=== PATIENT | male | born 1960 | race Caucasian/White ===

== ENCOUNTER → 2019-02-24 | Outpatient (CLI) | payer BC ==
[2019-02-24 08:16] LABS: Basophils % (A) 1 %; Eosinophils # (A) 0.2 k/uL (0-0.7); Eosinophils % (A) 3 %; HCT 42.7 % (39.0-53.0); HGB 14.8 gm/dL (13.0-17.5); Lymphocytes # (A) 2.2 k/uL (1.0-4.8); Lymphocytes % (A) 38 %; MCHC 34.5 g/dL (31.0-37.0); MCV 95.7 fL (80.0-100.0); Mean Platelet Volume 8.2; Monocytes # (A) 0.3 k/uL (0-1.0); Monocytes % (A) 5 %; Neutrophils # (A) 3.1 k/uL (1.3-7.7); Neutrophils % (A) 52 %; Platelet Count 196 k/uL (150-450); RBC 4.46 m/uL (4.30-5.90); RDW 12.4 % (11.5-15.5); WBC 5.9 k/uL (3.8-10.6)
[2019-02-24 12:00] LABS: African American GFR (CKD) 94.4 (60.0-200.0); Albumin 4.7 g/dL (3.80-4.90); Albumin/Globulin Ratio 2.47 (1.60-3.17); Calcium 9.5 mg/dL (8.7-10.3); Chol/HDL Ratio 3.35; Globulin 1.9 g/dL (1.6-3.3); LDL Cholesterol,Calculated 82.4 mg/dL (0.0-131.0); Non-African American GFR(CKD) 81.4 (60.0-200.0); Potassium 4.3 mmol/L (3.5-5.5); Total Bilirubin 0.5 mg/dL (0.3-1.2); Total Protein 6.6 g/dL (6.2-8.2); VLDL Calculation 30.6 mg/dL (5.00-40.00)
[2019-02-24 16:07] LABS: Hemoglobin A1C 5.8 % (4.0-6.0)
== END | disposition home or self-care (01) ==
LOC: LABWHC1 07:44
PROVIDERS: ATTEND Family Medicine
DX: Z00.00 Encounter for general adult medical examination without abnormal findings (principal)
CPT/HCPCS: 36415; 80053; 80061; 83036; 84153; 84443; 85025

== ENCOUNTER 2022-01-28 11:52 | Emergency (ER) | payer BC, OTHER ==
[2022-01-28 12:10] VITALS: TEMP 98
[2022-01-28] MEDS ORDERED: HYDROmorphone 1 MG/ML 1 ML SYRINGE IVP STA (12:33)
[2022-01-28] MEDS ORDERED: ONDANSETRON 4 MG/2 ML VIAL IVP STA (12:33)
--- NOTE | 2022-01-28 12:53 | ED ---
Lower Extremity Injury HPI <Chandler Mccabe - Last Filed: 01/28/22 14:23> - General Source: patient, RN notes reviewed Mode of arrival: wheelchair Limitations: no limitations <Joss Dawson - Last Filed: 01/28/22 14:35> - General Chief Complaint: Extremity Injury, Lower Stated Complaint: lt ankle injury Time Seen by Provider: 01/28/22 12:21 - History of Present Illness Initial Comments: 61-year-old male presents emergency Department chief complaint left ankle injury. Patient states he was wrenching states that he rolled his ankle states is deformity states that he splinted it was somewhat intake. Patient states that he was falling off to the side. No prior injury or surgeries. Patient has normal drug ALLERGIES no pain in his proximal leg or in his distal foot. No paresthesias (Joss Dawson) - Related Data Home Medications Medication Instructions Recorded Confirmed Fluticasone Nasal [place] [Flonase 2 spray EA NOSTRIL DAILY 01/28/22 01/28/22 Nasal Tyner] Pravastatin Sodium [Pravachol] 80 mg PO DAILY 01/28/22 01/28/22 lisinopriL [Prinivil] 20 mg PO DAILY 01/28/22 01/28/22 Allergies Allergy/AdvReac Type Severity Reaction Status Date / Time No Known Allergies Allergy Verified 01/28/22 14:08 Review of Systems ROS Other: All systems not noted in ROS Statement are negative. <Chandler Mccabe - Last Filed: 01/28/22 14:23> ROS Other: All systems not noted in ROS Statement are negative. <Joss Dawson - Last Filed: 01/28/22 14:35> ROS Statement: Those systems with pertinent positive or pertinent negative responses have been documented in the HPI. Past Medical History Past Medical History: No Reported History History of Any Multi-Drug Resistant Organisms: None Reported Past Surgical History: No Surgical Hx Reported Past Psychological History: No Psychological Hx Reported Smoking Status: Never smoker Past Alcohol Use History: Occasional Past Drug Use History: None Reported <Joss Dawson - Last Filed: 01/28/22 14:35> General Exam Limitations: no limitations General appearance: alert, in no apparent distress Head exam: Present: atraumatic, normocephalic, normal inspection Eye exam: Present: normal appearance, PERRL, EOMI. Absent: scleral icterus, conjunctival injection, periorbital swelling ENT exam: Present: normal exam, normal oropharynx, mucous membranes moist Neck exam: Present: normal inspection, full ROM. Absent: tenderness, meningismus, lymphadenopathy Respiratory exam: Present: normal lung sounds bilaterally. Absent: respiratory distress, wheezes, rales, rhonchi, stridor Cardiovascular Exam: Present: regular rate, normal rhythm, normal heart sounds. Absent: systolic murmur, diastolic murmur, rubs, gallop, clicks Extremities exam: Present: other (Obvious deformity left ankle, tenderness palpation, neurovascular intact no proximal tib-fib tenderness) <Joss Dawson M - Last Filed: 01/28/22 14:35> Course Vital Signs 01/28/22 01/28/22 01/28/22 12:07 13:30 14:00 Temperature 98 F Pulse Rate 80 84 85 Respiratory 16 18 18 Rate Blood Pressure 153/90 158/93 143/89 O2 Sat by Pulse 99 96 97 Oximetry 01/28/22 01/28/22 14:02 14:12 Temperature Pulse Rate 89 99 Respiratory 18 18 Rate Blood Pressure 158/93 141/73 O2 Sat by Pulse 98 97 Oximetry Procedures - Procedural Sedation *Procedural Sedation Start Time: 02:06 *Procedural Sedation Stop Time: 02:26 *Indications: fracture/dislocation reduction *Previous Adverse Reaction to Anesthesia/Sedation?: No *ASA Class: II *Mallampati Airway Score: 3 *Time of Last PO Intake: 14:24 Preparation: teletypesetter monitor applied, pulse oximeter, capnometry used, supplemental O2 applied, suction/airway equipment at bedside, IV secured IV Propofol Dose (mgs): 150 Complications: none Patient Tolerated Procedure: well <Chandler Mccabe - Last Filed: 01/28/22 14:23> - Orthopedic Fracture Reduction Fracture #1 Consent Obtained: written consent Side: left (Left ankle fracture/dislocation reduction) Fracture Reduction Location: other (ankle) Analgesia: procedural sedation Post Reduction X-rays Demonstrate: anatomical reduction Post-Reduction Neuro Exam: intact Post-Reduction Vascular Exam: intact Splint Applied: Yes Patient Tolerated Procedure: well, no complications - Orthopedic Splinting/Casting Injury #1 Side: left Lower Extremity Injury Location: short leg, ankle Lower Extremity Immobilizer: posterior splint, synthetic pre-padded splint Other Orthopedic Equipment: crutches <Joss Dawson - Last Filed: 01/28/22 14:35> - Orthopedic Fracture Reduction Fracture #1 Additional Comments: Procedure performed by me (Joss Dawson) Medical Decision Making <Chandler Mccabe - Last Filed: 01/28/22 14:23> <Joss Dawson - Last Filed: 01/28/22 14:35> - Medical Decision Making FEDE attestation: I, Dr. Chandler Mccabe, personally saw and examined the patient. I have reviewed and agree with the resident/PA findings, including all diagnostic interpretations and treatment plans as written unless otherwise stated. I was present for the golden portions of any procedures performed and inclusive time noted for any critical care statement. (Chandler Mccabe) 61-year-old male presented for left ankle injury. Patient had a left distal fibular fracture with dislocation. This was reduced under conscious sedation with Dr. Mccabe. Patient was splinted was given crutches, pain control. Patient was neurovascular intact he is advised to remain nonweightbearing, elevate, ice and follow-up with orthopedics as directed. (Joss Dawson) Disposition <Chandler Mccabe - Last Filed: 01/28/22 14:23> Is patient prescribed a controlled substance at d/c from ED?: Yes When asked, does pt state using other controlled substances?: No If prescribed controlled substance>3 days was MAPS reviewed?: Prescribed <3 Days If opioid is for acute pain is fill amount 7 days or less?: Yes If Rx opioid, was Start Talking consent form obtained?: Yes Time of Disposition: 14:20 <Joss Dawson - Last Filed: 01/28/22 14:35> Clinical Impression: Dislocation of left ankle joint, Fracture of distal end of left fibula Disposition: HOME SELF-CARE Instructions (If sedation given, give patient instructions): Moderate Sedation (ED), Ankle Dislocation (ED), Ankle Fracture (ED) Additional Instructions: Please return to the Emergency Department if symptoms worsen or any other concerns. Referrals: [facility] [NON-STAFF] - (Supplier of crutches) Juno Gaytan MD [Primary Care Provider] - 1-2 days Lázaro Mena MD [STAFF PHYSICIAN] - 1-2 days
[2022-01-28] MEDS ORDERED: PROPOFOL 10 MG/ML 20 ML VIAL IV STA (13:02)
[2022-01-28] MEDS ORDERED: SODIUM CHLORIDE 0.9% 500 ML 500 ML IV STA (13:02)
--- NOTE | 2022-01-28 13:12 | XR ---
EXAMINATION TYPE: XR ankle limited LT DATE OF EXAM: 01/28/2022 COMPARISON: NONE HISTORY: Deformity TECHNIQUE: Frontal and lateral views of the left ankle are submitted for evaluation. FINDINGS: Ankle dislocation with the distal tibia extending anterior and medial to the talus. Acute t ransverse displaced fracture of the distal fibula diaphysis with approximately 2.8 cm of shortening a nd lateral displacement of the distal fibular fragment. Possible posterior malleolar fracture. [place] ing fragments from the fibular fracture limits evaluation. There is surrounding soft tissue edema. Mo derate size plantar calcaneal spur. IMPRESSION: 1. Moderate ankle dislocation with the distal tibia extending anterior and medial to the talus. 2. Acute displaced fracture of the distal fibula with shortening. 3. Possible posterior malleolus fracture.
[2022-01-28 13:31] VITALS: RESP 18
[2022-01-28] MEDS ORDERED: PROPOFOL 10 MG/ML 20 ML VIAL IV ONE (14:06)
--- NOTE | 2022-01-28 14:32 | XR ---
EXAMINATION TYPE: XR ankle limited LT DATE OF EXAM: 01/28/2022 COMPARISON: Left ankle radiograph the same date. HISTORY: Post reduction TECHNIQUE: Frontal and lateral views of the left ankle are submitted for evaluation. FINDINGS: Overlying cast material limits evaluation of the fine osseous detail. Interval reduction of ankle dislocation with medial clear space widening of approximately 8 mm remaining indicating ligame ntous injury. Improved alignment of distal fibular oblique diaphyseal fracture. Moderate size plantar calcaneal enthesophyte. Diffuse surrounding soft tissue edema. IMPRESSION: Interval reduction of ankle dislocation with improved alignment of distal fibular fracture.
[2022-01-28 15:10] VITALS: BP 147/87; PULSE 70
== END 2022-01-28 15:10 | disposition home or self-care (01) ==
LOC: EC 11:52
DX: S93.05XA Dislocation of left ankle joint, initial encounter (principal); S82.402A Unspecified fracture of shaft of left fibula, initial encounter for closed fracture; X50.0XXA Overexertion from strenuous movement or load, initial encounter
CPT/HCPCS: 73600; 99283; 96374; 96375; 96361; 99152; 27840; J2405; J1170; J2704

== ENCOUNTER → 2022-02-04 | Outpatient (CLI) | payer OTHER ==
--- NOTE | 2022-02-04 09:06 | CT ---
EXAMINATION TYPE: CT ankle LT wo con CT DLP: 266.6 mGycm, Automated exposure control for dose reduction was used. DATE OF EXAM: 02/04/2022 8:55 AM COMPARISON: Left ankle radiographs 01/28/2022. CLINICAL INDICATION:Male, 61 years old with history of M25.572 pain L ankle; PHH, left ankle fx TECHNIQUE: Axial images were obtained of the ankle without the use of IV contrast. Additional nieves l and sagittal reformatted images and soft tissue and bone window were obtained for review. 3-D recon struction was created on a separate workstation. FINDINGS: Redemonstration of oblique fracture of the distal metadiaphyseal fibula with posterior late ral displacement of the distal fibular fragment measuring 5 mm. There is an acute appearing small fra cture involving the tip of the medial malleolus with fracture fragment displaced inferiorly approxima tely 3 mm (series 6, image 47). Medial subluxation of the distal tibia in relation to the talus of ap proximately 1.2 cm. Small ankle joint effusion. Moderate size plantar calcaneal enthesophyte. Diffuse subcutaneous edema. IMPRESSION: Redemonstration of mildly displaced distal fibular fracture with medial subluxation of the distal tib ia in relation to the talus. Additional tiny fracture of the tip of the medial malleolus.
== END | disposition home or self-care (01) ==
LOC: RADCTMAIN 08:32
PROVIDERS: ATTEND Podiatrist
DX: S82.852A Displaced trimalleolar fracture of left lower leg, initial encounter for closed fracture (principal); S82.832A Other fracture of upper and lower end of left fibula, initial encounter for closed fracture

== ENCOUNTER 2022-02-07 10:30 | Day surgery (SDC) | payer OTHER ==
[2022-02-05 12:13] VITALS: BMI 32.1
[~2022-02-07 10:30] MED LIST: DEXAMETHASONE SOD PHOSPHATE 4 MG/ML 1 ML VIAL IV ONE; HYDROmorphone 0.5 MG/0.5 ML SYRINGE IVP PRN; LACTATED RINGERS 1,000 ML IV SCH; MIDAZOLAM 2 MG/2 ML VIAL IV PRN; ONDANSETRON 4 MG/2 ML VIAL IVP ONE; SCOPOLAMINE 1 MG/72 HR PATCH TRANSDERM ONE
[2022-02-07 10:53] VITALS: RESP 16
[2022-02-07] MEDS ORDERED: PROPOFOL 10 MG/ML 20 ML VIAL IV ONE (12:27)
[2022-02-07] MEDS ORDERED: MIDAZOLAM 2 MG/2 ML VIAL ONE (12:27)
[2022-02-07] MEDS ORDERED: LIDOCAINE 2% INJ 20 MG/ML (2 ML VIAL) ONE (12:27)
[2022-02-07] MEDS ORDERED: PHENYLEPHRINE-0.9% NACL SYG 1,000 MCG/10 ML SYRINGE ONE (12:27)
[2022-02-07] MEDS ORDERED: DEXAMETHASONE SOD PHOSPHATE 4 MG/ML 1 ML VIAL ONE (12:27)
[2022-02-07] MEDS ORDERED: ROPIVACAINE 5 MG/ML 30 ML VIAL ONE (12:27)
[2022-02-07] MEDS ORDERED: fentaNYL (PF) 50 MCG/ML 2 ML AMP ONE (12:27)
[2022-02-07] MEDS ORDERED: SODIUM CHLORIDE 0.9% (PF) 10 ML VIAL ONE (12:27)
--- NOTE | 2022-02-07 12:42 | P.ANPRN ---
Procedure Note - Anesthesia - Nerve Block Performed Left Popliteal Single Time Out Performed: Yes (1125) Date of Procedure: 02/07/22 Location of Patient: PreOp Indication: Acute Post-Operative Pain, Dx/Pain Location (Left foot pain), Requested by Surgeon Specifically requested for management of pain by DrAleksey: Derrek Mcgarry Sedation Type: Sedate with meaningful contact maintained Preparation: Sterile Prep Position: Right Lateral Catheter: None Needle Types: Pajunk Needle Gauge: 18 Ultrasound used to visualize needle placement: Yes Ultrasound used to observe medication spread: Yes Injectate: 0.5% Ropivacaine (see comment for volume) (20 cc + 2mg of decadron + 10cc of saline) Blood Aspirated: No Pain Paresthesia on Injection Noted: No Resistance on Injection: Normal Image Stored and Saved: Yes Events: Uneventful and Well Tolerated Left Adductor Canal Single Time Out Performed: Yes Date of Procedure: 02/07/22 Location of Patient: PreOp Indication: Acute Post-Operative Pain, Dx/Pain Location (Left ankle) Specifically requested for management of pain by Dr.: Derrek Mcgarry Sedation Type: Sedate with meaningful contact maintained Preparation: Sterile Prep Position: Supine Catheter: None Needle Types: Pajunk Needle Gauge: 18 Ultrasound used to visualize needle placement: Yes Ultrasound used to observe medication spread: Yes Injectate: 0.5% Ropivacaine (see comment for volume) (10 cc + 2mg of decadron + 10cc of saline) Blood Aspirated: No Pain Paresthesia on Injection Noted: No Resistance on Injection: Normal Image Stored and Saved: Yes Events: Uneventful and Well Tolerated
[2022-02-07] MEDS ORDERED: LACTATED RINGERS 1,000 ML IV ONE (13:17)
--- NOTE | 2022-02-07 13:55 | XR ---
Intraoperative/procedural fluoroscopic services were provided for left ankle ORIF. There is left dist al fibular fixation plate with transverse screws and right medial malleolus fixation hardware. Hardwa re appears intact with appropriate alignment. Total fluoroscopy time is 15 seconds with a total of 3 submitted images to PACS. Please see the operative note for further details.
[2022-02-07 14:16] VITALS: TEMP 98.3
[2022-02-07] MEDS: Acetaminophen-Codeine 300-30mg TAB ONE ×2 (15:12→15:14)
[2022-02-07 15:25] VITALS: BP 135/86; PULSE 85
--- NOTE | 2022-02-07 16:47 | P.OP ---
Date of Procedure: 02/07/22 Preoperative Diagnosis: 1. Displaced lateral malleolar fracture left ankle 2. Ruptured syndesmosis left ankle 3. Ruptured deltoid ligament left ankle Postoperative Diagnosis: 1. Same 2. Same 3. Same Procedure(s) Performed: 1. Open reduction with internal fixation left lateral malleolar fracture 2. Open reduction with internal fixation syndesmotic rupture left ankle 3. Open repair deltoid ligament left ankle Implants: Arthrex precontoured lateral malleolar plate Arthrex tight rope Arthrex fiber Chaparro anchors 2 Anesthesia: LUCILA Surgeon: Derrek Mcgarry Estimated Blood Loss (ml): 5 Pathology: none sent Condition: stable Disposition: PACU Description of Procedure: Prior to the patient being brought to the operating room, anesthesia administered a nerve block on the left lower extremity. Then the patient was brought into the operative room and placed on table supine position. Timeout was taken to confirm correct laterality of surgery, correct procedure, and correct patient identifiers. Once all staff in the room were in agreement with the timeout, the patient was induced and placed under general anesthesia. A well-padded tourniquet was placed on the left thigh and a wedge underneath the left hip to internally rotate the left leg. The left leg was then prepped and draped in usual manner. The leg was exsanguinated and the tourniquet inflated to 250 mmHg. Attention was first directed over the medial malleolus where an incision was made along the anterior and distal aspects. It was deepened down to the saphenous tissue careful to identify, avoid, and retract any neurovascular structures and cauterize any bleeding vessels. The saphenous vein was identified and protected. The anterior medial joint capsule was opened revealing that there was a complete rupture of the deltoid ligament with incarceration of the tissue in the medial gutter. A Vargas was first used to remove bone of the anterior distal surface of the medial malleolus to help facilitate the ligament re-adhesion upon repair. Then the wound is thoroughly irrigated with a bike saline. The ligament was taken from the medial gutter then the ankle was inverted to reduce the mortise and delivered the tissue into the surgical field. Drill holes for the fiber Benigno anchors were made one and the anterior surface of the medial malleolus one of the distal aspect. With the deltoid ligament tissue still mobilized the suture from the fiber Benigno anchors was used to capture the ligament and then with the ankle inverted the suture was tied to the medial malleolus completed the deltoid ligament repair. Then attention was directed to the lateral ankle where a linear incision was made over the lateral malleolus. It was deepened down to the saphenous tissue careful to identify, avoid, and retract any neurovascular structures and cauterize any bleeding vessels. Dissection was continued down to the lateral malleolus following the hematoma the fracture. Soft tissues reflected to expose lateral malleolus and the fracture. The fracture fragments were distracted and any interposing hematoma, soft tissue, or bony fragments were removed and then the area thoroughly irrigated. Bone reduction forceps were used to rotate and reduce the fracture and bring the fibula back out to length. Fluoroscopy was used to check overall alignment which showed it was near anatomic upon reduction. An interfragmentary compression screw was then placed from anterior to posterior across the fracture line. The clamps the removed and then a precontoured lateral malleolar plate was then positioned and adjusted under fluoroscopy until was properly placed. Temporary fixation was then done to hold it in place. In the proximal holes in the plate, 3.5 locking screws were placed. In the distal aspect of the plate 3.0 locking and nonlocking screws were placed. Drill holes were made through the plate under direct fluoroscopic visualization so that the lateral gutter was not penetrated. 2 locking and 2 nonlocking screws were position. Fluoroscopic imaging showed anatomic reduction of the fracture with proper placement of all hardware. Then under live fluoroscopy the ankle was stressed that showed gapping of the syndesmosis. So the decision to place a tight rope was then made. Drilling directly to the hole the plate corresponding the most tight rope it was drilled from lateral to medial with slight anterior angulation so that it exited out the medial aspect of the tibia. The tight rope wire weaver was then placed until the button was cleared of the medial cortex the tibia at which point the button was deployed and the manipulated so wide flat against the bone surface. The wire weaver was then removed and then a large bone reduction forceps was used to deep the syndesmosis reduced while holding the ankle maximally dorsiflexed. Then the button was then tied until it engaged the plate and lateral malleolus. The clamp was removed and then the ankle was tested under fluoroscopy for any abnormal gapping medially or at the syndesmosis and number found. The suture was then cut and the wound thoroughly irrigated with antibiotic saline. Deep closure was done with 2-0 Vicryl. Subcu closure was done with 3-0 Monocryl. And skin closure done with yosef. Then attention directed back to the medial malleolar incision which was again irrigated with antibiotic saline. Subcu closure done for Monocryl skin closure done with yosef. An Arthrex Gemzar dressings were placed over both incisions and a bulky dry dressings applied to the left ankle. The tourniquet was released and capillary refill return to all digits on the left foot. The patient was then placed in a well-padded, well molded plaster posterior mold/sugar tong splint. Ankle was held in neutral position until it was dried. Then anesthesia was reversed and the patient was taken recovery with vital signs stable
== END 2022-02-07 15:59 | disposition home or self-care (01) ==
LOC: OR 10:30
PROVIDERS: ATTEND Podiatrist
DX: S82.852A Displaced trimalleolar fracture of left lower leg, initial encounter for closed fracture (principal); S93.422A Sprain of deltoid ligament of left ankle, initial encounter; X58.XXXA Exposure to other specified factors, initial encounter; Z04.9 Encounter for examination and observation for unspecified reason
CPT/HCPCS: 64447; 64445; 76942; 73600; 27829; 27695; C1713 ×2; J2250; J1100; J0690; J2405; J3010; J2795; J2370; J2704; J2001